=== PATIENT | female | born 1985 | race African-American/Black ===

== ENCOUNTER → 2018-06-08 | Emergency (ER) | payer OTHER ==
[~2018-06-08] MED LIST: ACETAMINOPHEN 1000 MG/100 ML VIAL (NON FORMULARY) IVPB ONE; ACETAMINOPHEN INJECTION 100 ML IVPB ONE; SODIUM CHLORIDE 1,000 ML IV STA
[2018-06-08 16:25] VITALS: BP 95/61; PULSE 63; TEMP 98.5; BMI 24.5
--- NOTE | 2018-06-08 16:28 | PDOC ---
Rapid Medical Evaluation Time Seen by Provider: 06/08/18 16:24 Medical Evaluation: Allergies Allergy/AdvReac Type Severity Reaction Status Date / Time No Known Allergies Allergy Verified 06/08/18 16:22 06/08/18 16:24 Pt C/o: rt lower abd pain x 5 days, no other complaints, no fever, no cyst, Pt on exam: mild lower / suprapubic pain Pt ordered for: ua, upreg, ucx Pt to proceed to the ED Discharge Disposition - Diagnosis Abdominal pain - Referrals Referrals: Logan Montes [Primary Care Provider] - - Patient Instructions - Post Discharge Activity
--- NOTE | 2018-06-08 17:26 | PDOC ---
History of Present Illness - General Chief Complaint: Pain, Acute Stated Complaint: ABD PAIN Time Seen by Provider: 06/08/18 16:24 History Source: Patient Exam Limitations: No Limitations - History of Present Illness Initial Comments: Pt, with PMH of cholelithiasis, presents with periumbilical and RLQ abdominal pain x5 days, migrating more towards RLQ. Pt states the pain is sharp and constant, with no radiation to the groin or back. It is worsened by palpation of the area, with no alleviating factors. She has taken ibuprofen for pain with no relief. She has been tolerating PO food and fluid intake, but has had decreased appetite over the past few days. She denies fevers/chills, nausea/ vomiting, SOB, and diarrhea. She denies any recent travel or sick contacts. Pt states ker LMP 05/23/2018, lasted approx 8-9 days, normal in flow, but came a week early. Pt had tubal ligation Sep 2017. PCP: Dr. Montes ([facility]) 06/08/18 18:01 Past History - Travel Traveled outside of the country in the last 30 days: No Close contact w/someone who was outside of country & ill: No - Past Medical History Allergies/Adverse Reactions: Allergies Allergy/AdvReac Type Severity Reaction Status Date / Time No Known Allergies Allergy Verified 06/08/18 16:22 Home Medications: Ambulatory Orders NK [No Known Home Medication] 06/08/18 Asthma: No Cancer: No Cardiac Disorders: No COPD: No Diabetes: No GI Disorders: Yes (GALLSTONES) HTN: No Seizures: No Thyroid Disease: No Other medical history: DENIES. - Reproductive History (#): 5 Para: 4 Cervical CA: No Dysfunctional Uterine Bleeding: No Ectopic : No Endometrial CA: No Polycystic Ovaries: No Therapeutic (s) & number: No Tubal Ligation: No Spontaneous : 0 - Immunization History Immunization Up to Date: Yes - Suicide/Smoking/Psychosocial Hx Smoking Status: No Smoking History: Never smoked Have you smoked in the past 12 months: No Hx Alcohol Use: No Drug/Substance Use Hx: No Substance Use Type: None Hx Substance Use Treatment: No Review of Systems - Review of Systems Able to Perform ROS?: Yes Is the patient limited [place] proficient: No Constitutional: Yes: Loss of Appetite, Weight Stable. No: Chills, Diaphoresis, Fever HEENTM: No: Recent change in vision, Nose Congestion, Hearing Loss, Difficulty Swallowing Respiratory: No: Cough, Orthopnea, Shortness of Breath Cardiac (ROS): No: Chest Pain, Edema, Irregular Heart Rate, Lightheadedness, Palpitations, Syncope, Chest Tightness ABD/GI: Yes: Poor Appetite, Other (josias-umbilical and RLQ pain). No: Abdominal Distended, Blood Streaked Bowels, Constipated, Diarrhea, Difficulty Swallowing, Nausea, Poor Fluid Intake, Vomiting, Indigestion, Abdominal cramping : No: Burning, Dysuria, Discharge, Frequency, Flank Pain, Hematuria, Incontinence, Pain, Urgency Musculoskeletal: No: Back Pain, Joint Pain Integumentary: No: Pruritus, Rash, Sweating Neurological: No: Headache, Numbness, Seizure, Unsteady Gait, Ataxia, Dizziness Psychiatric: No: Sleep Pattern Change, Change in Appetite Endocrine: No: Increased Urine, Change in Weight Hematologic/Lymphatic: No: Anemia, Blood Clots, Easy Bleeding All Other Systems: Reviewed and Negative *Physical Exam - Vital Signs Last Vital Signs Temp Pulse Resp BP Pulse Ox 98.5 F 63 17 95/61 100 06/08/18 16:22 06/08/18 16:22 06/08/18 16:22 06/08/18 16:22 06/08/18 16:22 - Physical Exam General Appearance: Yes: Nourished, Appropriately Dressed. No: Apparent Distress (BP 95/61, not tachycardic, afebrile.) HEENT: positive: EOMI, RAMOS, Normal ENT Inspection, Normal Voice, Pharynx Normal , Hearing Grossly Normal. negative: Scleral Icterus (R), Scleral Icterus (L), Pharyngeal Erythema, Tonsillar Exudate, Tonsillar Erythema, Rhinorrhea Neck: positive: Trachea midline, Normal Thyroid, Supple. negative: Tender, Rigid, Lymphadenopathy (R), Lymphadenopathy (L) Respiratory/Chest: positive: Lungs Clear, Normal Breath Sounds. negative: Chest Tender, Respiratory Distress, Accessory Muscle Use, Stridor, Wheezing Cardiovascular: positive: Regular Rhythm, Regular Rate, S1, S2. negative: Edema , JVD, Murmur, Tachycardia Vascular Pulses: Carotid (R): 4+, Carotid (L): 4+ Gastrointestinal/Abdominal: positive: Normal Bowel Sounds, Tender (RLQ tenderness, guarding. No rebound), Flat, Soft, Guarding. negative: Organomegaly , Pulsatile Mass, Distended, Rebound Rectal Exam: positive: deferred Lymphatic: negative: Adenopathy, Tenderness Musculoskeletal: positive: Normal Inspection. negative: CVA Tenderness Extremity: positive: Normal Capillary Refill, Normal Inspection, Normal Range of Motion, Pelvis Stable. negative: Tender, Pedal Edema, Calf Tenderness Integumentary: positive: Normal Color, Dry, Warm. 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 Song. Pt presents with periumbilical and RLQ abdominal pain x5 days, migrating more towards RLQ. LMP 05/23/2018, lasted approx 8-9 days, normal in flow. Pt had tubal ligation Sep 2017. Considering appendicitis vs ectopic vs ovarian cyst. Ordered CBC, CMP, type & screen, coags. Ordered CT abd/pelvis IV contrast to r/ o appendicitis. Pt BP 95/61 which is low for pt, no tachycardic, afebrile. Ordered 1g ofirmev for pain and 1 L NS. Pending labs. PCP: Dr. Crowe 06/08/18 17:52 Pt received fluids and ofirmev. Pt taken to CT scan. Small UTI (leuk esterase 2+, WBC 14) 06/08/18 19:20 Dr. Song spoke with pt and pt admitted this pain happened 1 month ago, for 3 days. Possible ovarian cyst. Awaiting CT results to r/o peritoneal fluid or appendicitis. 06/08/18 19:25 Pt refused IV contrast. Will proceed with CT without contrast. Awaiting results. 06/08/18 19:42 [id number] CT/ABDOMEN & PELVIS CT W/O CONTR Abdomen and pelvis CT (without contrast) Clinical information: right lower quadrant tenderness, evaluate for appendicitis , free fluid Multiplanar imaging was performed. No intravenous or enteric contrast was administered. A very small amount of free intraperitoneal fluid is seen within the pelvic cul- de-sac. No evidence of pneumoperitoneum or bowel obstruction. The appendix cannot be definitely visualized due to multiple contiguous bowel loops within the lower abdomen/pelvis. Evaluation of the mesentery in that region is also very limited on the same basis. No obvious abscess or gross mesenteric edema is visualized. There is no obvious adnexal pathology. Cholelithiasis is noted without definite CT evidence of acute cholecystitis. No biliary tract dilatation is visualized. The liver, spleen, pancreas, adrenal glands and kidneys demonstrate no discrete noncontrast pathology. There is no aortic aneurysm. No gross lymphadenopathy is identified. The visualized osseous structures demonstrate no obvious CT evidence of acute abnormality. No gross small bowel pathology is seen. Impression: A very small amount of pelvic free fluid is noted. The appendiceal region cannot be adequately evaluated on this exam due to a relative paucity of intra-abdominal/pelvic fat as well as multiple contiguous bowel loops. If clinically indicated additional evaluation utilizing supplemental targeted CT of the pelvis and lower half of the abdomen preferably with intravenous and oral contrast may be performed. Pt did not wish to stay in the department. Pt eloped after removal of her IV. We planned to send Macrobid to pharmacy for minor UTI, and proceed with pelvic US to r/o ruptured ovarian cyst. Labs were otherwise WNL. Pt did not sign AMA form. 06/08/18 21:06 *DC/Admit/Observation/Transfer Diagnosis at time of Disposition: Abdominal pain Qualifiers: Abdominal location: right lower quadrant Qualified Code(s): R10.31 - Right lower quadrant pain - Discharge Dispostion Disposition: ELOPED Decision to Admit order: No - Referrals Referrals: Logan Montes [Primary Care Provider] - - Patient Instructions - Post Discharge Activity
--- NOTE | 2018-06-08 17:42 | PDOC ---
Attending Attestation - Resident Resident Name: Bebe Acevedo - ED Attending Attestation I have performed the following: I have examined & evaluated the patient, The case was reviewed & discussed with the resident, I agree w/resident's findings & plan, Exceptions are as noted - HPI HPI: 06/08/18 18:01 Ms luong is a 32 yo F who presents to the ER with a complaint of abdominal pain pt states that her symptoms began 5 days ago She noted severe right lower abdominal pain, which made it difficult to walk No vomiting, no diarrhea Pt tolerating po No fevers or chills symptoms have been consistently present for the past 5 days She had a similar episode last month, lasting 3 days and then it self resolved - Physicial Exam PE: 06/08/18 18:06 On examination Pt is appears well, laughing with daughter RRR CTA bilaterally RLQ tenderness to palpation, no involuntary guarding or rebound - Medical Decision Making 06/08/18 18:08 RLQ pain DD: appendicitis, ruptured ovarian cyst, right ovarian torsion Will do: Labs IVF Would do TVUS Can also do CT Pain medications Re: assess 06/08/18 19:44 Laboratory Tests 06/08/18 06/08/18 06/08/18 16:40 18:05 18:05 WBC 7.8 Hgb 11.1 Hct 34.9 Plt Count 195 INR 1.12 H Sodium Potassium Chloride Carbon Dioxide BUN Creatinine Random Glucose Urine Nitrite Negative Ur Leukocyte Esterase 2+ H Urine WBC (Auto) 14 Urine RBC (Auto) 1 Urine HCG, Qual Negative 06/08/18 18:05 WBC Hgb Hct Plt Count INR Sodium 144 Potassium 3.7 Chloride 109 H Carbon Dioxide 27 BUN 9 Creatinine 0.6 Random Glucose 89 Urine Nitrite Ur Leukocyte Esterase Urine WBC (Auto) Urine RBC (Auto) Urine HCG, Qual 06/08/18 21:[address] performed Unable to see Appendix (paucity of intra abdominal fat, pt refused IV contrast) Pt unwilling to stay for US Pt has eloped Discharge Disposition - Discharge Dispostion Last Admission D/C Date: 10/14/16 - Diagnosis Abdominal pain Qualifiers: Abdominal location: right lower quadrant Qualified Code(s): R10.31 - Right lower quadrant pain - Discharge Dispostion Disposition: ELOPED - Referrals Referrals: Logan Montes [Primary Care Provider] - - Patient Instructions - Post Discharge Activity
[2018-06-08 18:07] LABS: HCG,QUALITATIVE URINE Negative
[2018-06-08 18:12] LABS: URINE APPEARANCE SLCLOUDY; URINE BILIRUBIN NEGATIVE (<2.0 mg/dL); URINE COLOR YELLOW; URINE GLUCOSE (UA) NEGATIVE (NEGATIVE); URINE KETONE NEGATIVE (NEGATIVE); URINE LEUK ESTERASE 2+ (NEGATIVE); URINE NITRITE NEGATIVE (NEGATIVE); URINE PROTEIN NEGATIVE (NEGATIVE); URINE UROBILINOGEN NEGATIVE mg/dL (0.2-1.0)
[2018-06-08 18:14] LABS: EPI CELLS RARE /HPF (FEW); URINE MUCUS RARE
[2018-06-08 18:27] LABS: BASO % 0.5 % (0-2.0); EOS % 0.7 % (0-4.5); HEMATOCRIT 34.9 % (32.4-45.2); HEMOGLOBIN 11.1 GM/dL (10.7-15.3); LYMPH % 23.4 % (8-40); MCH 23.4 pg (25.7-33.7); MCHC 31.9 g/dl (32.0-36.0); MEAN CELL VOLUME 73.3 fl (80-96); MEAN PLT VOLUME 9.3 fl (7.5-11.1); MONO % 5.4 % (3.8-10.2); PLATELET COUNT 195 K/MM3 (134-434); RBC 4.76 M/mm3 (3.60-5.2); RDW 14.7 % (11.6-15.6); WHITE BLOOD COUNT 7.8 K/mm3 (4.0-10.0)
[2018-06-08 18:44] LABS: INR 1.12 (0.83-1.09); PROTHROMBIN TIME (PATIENT) 12.6 SEC (9.7-13.0)
[2018-06-08 18:47] LABS: ALBUMIN 3.3 g/dl (3.4-5.0); ALK PHOS 71 U/L (45-117); ANION GAP 8 MMOL/L (8-16); BILIRUBIN,TOTAL 0.4 mg/dL (0.2-1.0); BLOOD UREA NITROGEN 9 mg/dL (7-18); CALCIUM 8.9 mg/dL (8.5-10.1); CHLORIDE 109 mmol/L (98-107); CO2 27 mmol/L (21-32); CREATININE 0.6 mg/dL (0.55-1.02); GLUCOSE,RANDOM 89 mg/dL (74-106); POTASSIUM 3.7 mmol/L (3.5-5.1); SGOT/AST 42 U/L (15-37); SGPT/ALT 47 U/L (12-78); SODIUM 144 mmol/L (136-145); TOT PROT 6.9 g/dl (6.4-8.2)
[2018-06-08 18:51] LABS: LIPASE 225 U/L (73-393)
== END | disposition left against medical advice (07) ==
LOC: JER 15:59 → JERFT 15:59
PROC: 3E033NZ Introduction of Analgesics, Hypnotics, Sedatives into Peripheral Vein, Percutaneous Approach (ICD-10-PCS; principal; 2018-06-08)
DX: N39.0 Urinary tract infection, site not specified (principal)
CPT/HCPCS: 36415; 74176-TC; 80053; 81003; 81015; 83690; 84703; 85025; 85610; 85730; 86850; 86900; 86901; 87086; 96374; 99282-25; J0131; J7030

== ENCOUNTER 2019-02-07 23:55 | Emergency (ER) | payer OTHER ==
[2019-02-08 00:03] VITALS: BP 107/79; PULSE 75; TEMP 98.1; BMI 25.8
--- NOTE | 2019-02-08 00:32 | PDOC ---
History of Present Illness - General Chief Complaint: Chest Pain Stated Complaint: chest pain Time Seen by Provider: 02/08/19 00:15 - History of Present Illness Initial Comments: 02/08/19 00:31 33 yo F with no significant pmh who p/w left sided retrosternal chest pain. Patient reports acute onset of unremitting, sharp, pleuritic left side retorsternal chest pain, worse with all movements. No identifiable triggers. Not alleviated with OTC Advil. Denies h/o similar presentation. Denies postprandial pain. Denies h/o similiar pain. Patient denies ACHARYA, vision change, palpitations, cough, wheezing, orthopena, PND , leg swelling/pain, N/V, F,C, SOB, urinary complaints, hematuria, BPR, abdominal pain, vaginal bleeding, pelvic pain, diarrhea, constipation, lightheadedness, weakness, sensory changes. PMHx: as noted above Surical: x 5 ROS: as noted SHx: Denies IVDA Allergies: NKDA Past History - Past Medical History Allergies/Adverse Reactions: Allergies Allergy/AdvReac Type Severity Reaction Status Date / Time No Known Allergies Allergy Verified 02/08/19 00:01 Home Medications: Ambulatory Orders NK [No Known Home Medication] 06/08/18 Asthma: No Cancer: No Cardiac Disorders: No COPD: No Diabetes: No GI Disorders: Yes (GALLSTONES) HTN: No Seizures: No Thyroid Disease: No - Reproductive History (#): 5 Para: 4 Cervical CA: No Dysfunctional Uterine Bleeding: No Ectopic : No Endometrial CA: No Polycystic Ovaries: No Therapeutic (s) & number: No Tubal Ligation: No Spontaneous : 0 - Immunization History Immunization Up to Date: Yes - Suicide/Smoking/Psychosocial Hx Smoking Status: No Smoking History: Never smoked Have you smoked in the past 12 months: No Information on smoking cessation initiated: No Hx Alcohol Use: No Drug/Substance Use Hx: No Substance Use Type: None Hx Substance Use Treatment: No Review of Systems - Review of Systems Comments:: 02/08/19 00:37 GENERAL/CONSTITUTIONAL: No fever or chills. No weakness. HEAD, EYES, EARS, NOSE AND THROAT: No change in vision. No ear pain or discharge. No sore throat. CARDIOVASCULAR: + left sided chest pain. No shortness of breath RESPIRATORY: No cough, wheezing, or hemoptysis. GASTROINTESTINAL: No nausea, vomiting, diarrhea or constipation. GENITOURINARY: No dysuria, frequency, or change in urination. MUSCULOSKELETAL: No joint or muscle swelling or pain. No neck or back pain. SKIN: No rash NEUROLOGIC: No headache, vertigo, loss of consciousness, or change in strength/ sensation. ENDOCRINE: No increased thirst. No abnormal weight change HEMATOLOGIC/LYMPHATIC: No anemia, easy bleeding, or history of blood clots. ALLERGIC/IMMUNOLOGIC: No hives or skin allergy. *Physical Exam - Vital Signs Last Vital Signs Temp Pulse Resp BP Pulse Ox 98.1 F 75 16 107/79 100 02/08/19 00:01 02/08/19 00:01 02/08/19 00:01 02/08/19 00:01 02/08/19 00:01 - Physical Exam Comments: 02/08/19 00:37 GENERAL: Awake, alert, and fully oriented, in no acute distress HEAD: No signs of trauma, normocephalic, atraumatic EYES: PERRLA, EOMI, sclera anicteric, conjunctiva clear ENT: Auricles normal inspection, hearing grossly normal, nares patent, oropharynx clear without exudates. Moist mucosa NECK: Normal ROM, supple, no lymphadenopathy, JVD, or masses LUNGS: No distress, speaks full sentences, clear to auscultation bilaterally HEART: Regular rate and rhythm, normal S1 and S2, no murmurs, rubs or gallops, peripheral pulses normal and equal bilaterally. ABDOMEN: Soft, nontender, normoactive bowel sounds. No guarding, no rebound. No masses EXTREMITIES : Normal inspection, Normal range of motion, no edema. No clubbing or cyanosis. NEUROLOGICAL: Cranial nerves II through XII grossly intact. Normal speech, normal gait, no focal sensorimotor deficits SKIN: Warm, Dry, normal turgor, no rashes or lesions noted ED Treatment Course - LABORATORY CBC & Chemistry Diagram: 02/08/19 01:10 02/08/19 01:10 Medical Decision Making - Medical Decision Making 02/08/19 00:34 33 yo F with no significant pmh who p/w left sided retrosternal chest pain. Patient reports acute onset of unremitting, sharp, pleuritic left side retorsternal chest pain., vitals wnl, AF, A&Ox3. Physical exam unremarkable. Low risk PE, PERC NEG, D-dimer. Will consider pericardial effusion, pericarditis , pleural effusion, PNA, gastritis, esophagitis. Will provide adequate analgesia and reasses. Ed Course: 02/08/19 00:51 EKG: NSR with absent SUNNY, STD. Nml interval duration and axis. Nml R wave progression. Absent Q waves. CBC: Unremarkable 02/08/19 01:51 Patient endorsed to night team, stable Pending CXR If CXR nml patient stable for d/c with return precautions. *DC/Admit/Observation/Transfer Diagnosis at time of Disposition: Retrosternal chest pain - Discharge Dispostion Condition at time of disposition: Stable - Referrals Referrals: Logan Montes [Primary Care Provider] - - Patient Instructions Printed Discharge Instructions: DI for Atypical Chest Pain Additional Instructions: Please return to the emergency department with any new or worsening symptoms or concerns. Please follow up with your primary care physician within 72 hours. - Post Discharge Activity
--- NOTE | 2019-02-08 01:21 | PDOC ---
Documentation entered by Oliverio Rojas SCRIBE, acting as scribe for Rupinder Ward DO. Rupinder Ward DO: This documentation has been prepared by the Bob holguin Nirvannie, SCRIBE, under my direction and personally reviewed by me in its entirety. I confirm that the documentation accurately reflects all work, treatment, procedures, and medical decision making performed by me. Attending Attestation - Resident Resident Name: MarianoJunior - ED Attending Attestation I have performed the following: I have examined & evaluated the patient, The case was reviewed & discussed with the resident, I agree w/resident's findings & plan - HPI HPI: 02/08/19 01:37 The patient is a 33 year old female, with no significant past medical history, who presents to the emergency department with, sharp, left sided, pleuritic chest pain worsened with movement. Patient endorses taking 400mg Ibuprofen, without relief prompting her arrival to the ED. She denies any long distance travel, calf pain, or recent heavy lifting. She denies recent fevers, chills, headache or dizziness. She denies recent nausea, vomit, diarrhea or constipation. She denies recent dysuria, frequency, urgency or hematuria. Allergies: NKDA Past surgical history: C-Sections. Social history: Nonsmoker. Denies EtOH use and recreational drug use. Primary Care Physician: Dr. Montes - Physicial Exam PE: 02/08/19 01:37 Constitutional: Awake, alert, oriented. No acute distress. Head: Normocephalic. Atraumatic Eyes: PERRL. EOMI. Conjunctivae are not pale. ENT: Mucous membranes are moist and intact. Posterior pharynx without exudates or erythema. Uvula midline. Neck: Supple. Full ROM. No lymphadenopathy. Cardiovascular: Regular rate. Regular rhythm. S1, S2 regular. Distal pulses are 2+ and symmetric. Pulmonary/Chest: No reproducible anterior chest wall tenderness. No evidence of respiratory distress. Clear to auscultation bilaterally No wheezing, rales or rhonchi. Abdominal: Soft and non-distended. There is no tenderness. No rebound, guarding or rigidity. No organomegaly. No palpable masses. Good bowel sounds. Back: No CVA tenderness. Musculoskeletal: No edema. No cyanosis. No clubbing. Full range of motion in all extremities. No calf tenderness. Radial/pedal pulses are intact and 2+ bilaterally Skin: Skin is warm and dry. No petechiae. No purpura. Neurological: Alert and oriented to person, place, and time. Cranial nerves II -XII are grossly intact. Normal speech. Strength is grossly symmetric. No sensory deficits. Psychiatric: Good eye contact. Normal interaction, affect and behavior. - Medical Decision Making 02/08/19 01:15 I, Dr. Rupinder Ward, DO, attest that this document has been prepared under my direction and personally reviewed by me in its entirety. I further attest, that it accurately reflects all work, treatment, procedures and medical decision -making performed by me. 02/08/19 01:15 a/p: 33yo female with midsternal cp -took advil tonight which did not help\ -no reproducible chest wall ttp -no trauma -had a cough that has resolved -perc negative, however sob and pleuritic cp -poss pleurisy vs acs vs pna vs pe -will send labs -cxr -will monitor and reassess 02/08/19 02:06 pt signed out pending labs and cxr Heart Score/ECG Review - ECG Intrepretation Comment:: 02/08/19 01:21 sinus at 71, nl axis, nl interval, no acute st/t wave findings
[2019-02-08 01:31] LABS: BASO % 0.7 % (0-2.0); HEMATOCRIT 35.4 % (32.4-45.2); HEMOGLOBIN 11.2 GM/dL (10.7-15.3); MCH 23.4 pg (25.7-33.7); MCHC 31.7 g/dl (32.0-36.0); MEAN CELL VOLUME 73.9 fl (80-96); MEAN PLT VOLUME 9.7 fl (7.5-11.1); MONO % 5.8 % (3.8-10.2); NEUT % 59.5 % (42.8-82.8); PLATELET COUNT 178 K/MM3 (134-434); RDW 14.9 % (11.6-15.6); WHITE BLOOD COUNT 8.3 K/mm3 (4.0-10.0)
[2019-02-08 02:06] LABS: ALBUMIN 3.8 g/dl (3.4-5.0); ALK PHOS 58 U/L (45-117); ANION GAP 8 MMOL/L (8-16); BILIRUBIN,TOTAL 0.4 mg/dL (0.2-1); BLOOD UREA NITROGEN 14 mg/dL (7-18); CALCIUM 8.6 mg/dL (8.5-10.1); CHLORIDE 106 mmol/L (98-107); CO2 24 mmol/L (21-32); CREATININE 0.8 mg/dL (0.55-1.3); GLUCOSE,RANDOM 86 mg/dL (74-106); POTASSIUM 3.7 mmol/L (3.5-5.1); SGOT/AST 18 U/L (15-37); SGPT/ALT 20 U/L (13-61); SODIUM 138 mmol/L (136-145); TOT PROT 7.6 g/dl (6.4-8.2)
--- NOTE | 2019-02-08 03:27 | PDOC ---
*Physical Exam - Vital Signs Last Vital Signs Temp Pulse Resp BP Pulse Ox 98.1 F 75 16 107/79 100 02/08/19 00:01 02/08/19 00:01 02/08/19 00:01 02/08/19 00:01 02/08/19 00:01 ED Treatment Course - LABORATORY CBC & Chemistry Diagram: 02/08/19 01:10 02/08/19 01:10 - ADDITIONAL ORDERS Additional order review: Laboratory Results 02/08/19 02/08/19 02/08/19 01:10 01:10 01:10 D-Dimer < 215 Sodium 138 Potassium 3.7 Chloride 106 Carbon Dioxide 24 Anion Gap 8 BUN 14 Creatinine 0.8 Creat Clearance w eGFR 82.61 Random Glucose 86 Calcium 8.6 Total Bilirubin 0.4 AST 18 ALT 20 Alkaline Phosphatase 58 Creatine Kinase 233 H Creatine Kinase Index 0.6 CK-MB (CK-2) 1.5 Troponin I < 0.02 Total Protein 7.6 Albumin 3.8 Serum , Qual Negative 02/08/19 01:10 RBC 4.80 MCV 73.9 L MCHC 31.7 L RDW 14.9 MPV 9.7 Neutrophils % 59.5 Lymphocytes % 33.0 D Monocytes % 5.8 Eosinophils % 1.0 Basophils % 0.7 Medical Decision Making - Medical Decision Making 02/08/19 03:25 Patient signed out with atypical left sided upper chest / shoulder pain that stated while she was pushing an object. labs WNL, EKG WNL, and D-Dimer negative. CXR delayed and patient asking to go home. We discussed risk/ benefits of leaving and she is OK with discharge. Will DC with return precautions and follow up instructions. *DC/Admit/Observation/Transfer Diagnosis at time of Disposition: Retrosternal chest pain - Discharge Dispostion Condition at time of disposition: Stable - Referrals Referrals: Logan Montes [Primary Care Provider] - - Patient Instructions Printed Discharge Instructions: DI for Atypical Chest Pain Additional Instructions: Please return to the emergency department with any new or worsening symptoms or concerns. Please follow up with your primary care physician within 72 hours. - Post Discharge Activity
--- NOTE | 2019-02-08 11:20 | EKG ---
Test Reason : Blood Pressure : / mmHG Vent. Rate : 071 BPM Atrial Rate : 071 BPM P-R Int : 196 ms QRS Dur : 076 ms QT Int : 402 ms P-R-T Axes : 070 052 032 degrees QTc Int : 436 ms NORMAL SINUS RHYTHM POSSIBLE LEFT ATRIAL ENLARGEMENT WHEN COMPARED WITH ECG OF 26-SEP-2015 15:57, NO SIGNIFICANT CHANGE WAS FOUND Confirmed by TESS CASTILLO MD ([id number]) on 02/08/2019 11:20:09 AM Referred By: Confirmed By:TESS CASTILLO MD
== END 2019-02-08 03:57 | disposition home or self-care (01) ==
LOC: JER 23:55
DX: R07.89 Other chest pain (principal)
CPT/HCPCS: 36415; 80053; 82550; 82553; 84484; 84703; 85025; 85379; 93005; 93010; 99281-25

== ENCOUNTER 2019-12-17 18:33 | Emergency (ER) | payer OTHER ==
--- NOTE | 2019-12-17 18:37 | PDOC ---
Rapid Medical Evaluation Time Seen by Provider: 12/17/19 18:36 Medical Evaluation: Allergies Allergy/AdvReac Type Severity Reaction Status Date / Time No Known Allergies Allergy Verified 02/08/19 00:01 12/17/19 18:36 CC: Dysuria, urinary frequency, fatigue. Denies vaginal bleeding, discharge or dysparunia PE: VSS. AF. No CVAT. Suprapubic tenderness. Orders: urine Patient will proceed to ED for further evaluation. Discharge Disposition - Diagnosis Dysuria - Referrals - Patient Instructions - Post Discharge Activity
[2019-12-17 18:38] VITALS: BP 99/64; PULSE 83; TEMP 98.4; BMI 24.5
[2019-12-17 19:28] LABS: EPI CELLS 2.1 /HPF (0-5/HPF); HYALINE CASTS 13 /lpf (0-8); PH,URINE 5.5 (5.0-8.0); URINE APPEARANCE TURBID; URINE BACTERIA 1376.8 /hpf (NEGATIVE); URINE BILIRUBIN 1+ (NEGATIVE); URINE COLOR DK YELLOW; URINE GLUCOSE (UA) NEGATIVE (NEGATIVE); URINE KETONE TRACE (NEGATIVE); URINE LEUK ESTERASE 3+ (NEGATIVE); URINE NITRITE NEGATIVE (NEGATIVE); URINE PROTEIN 2+ (NEGATIVE); URINE RBC 18 /hpf (0-4); URINE WBC 750 /hpf (0-5)
[2019-12-17] MEDS ORDERED: CEPHALEXIN MONOHYDRATE 500 MG CAPSULE (UD) PO ONE (19:33)
--- NOTE | 2019-12-17 19:36 | PDOC ---
History of Present Illness - General Chief Complaint: Urinary Problem Stated Complaint: UTI Time Seen by Provider: 12/17/19 18:36 History Source: Patient Exam Limitations: No Limitations Past History - Travel Traveled outside of the country in the last 30 days: No Close contact w/someone who was outside of country & ill: No - Past Medical History Allergies/Adverse Reactions: Allergies Allergy/AdvReac Type Severity Reaction Status Date / Time No Known Allergies Allergy Verified 12/17/19 18:37 Home Medications: Ambulatory Orders Cephalexin Monohydrate [Keflex -] 500 mg PO BID #14 capsule 12/17/19 Asthma: No Cancer: No Cardiac Disorders: No COPD: No Diabetes: No GI Disorders: Yes (G[place]STONES) HTN: No Seizures: No Thyroid Disease: No - Reproductive History Is Patient Now?: No (#): 5 Para: 4 Cervical CA: No Dysfunctional Uterine Bleeding: No Ectopic : No Endometrial CA: No Polycystic Ovaries: No Therapeutic (s) & number: No Tubal Ligation: No Spontaneous : 0 - Immunization History Immunization Up to Date: Yes - Psycho Social/Smoking Cessation Hx Smoking Status: No Smoking History: Never smoked Have you smoked in the past 12 months: No Hx Alcohol Use: No Drug/Substance Use Hx: No Substance Use Type: None Hx Substance Use Treatment: No Review of Systems - Review of Systems Able to Perform ROS?: Yes Comments:: 12/17/19 19:33 CONSTITUTIONAL: Absent: fever, chills, diaphoresis, generalized weakness, malaise, loss of appetite GASTROINTESTINAL: Absent: abdominal pain, abdominal distension, nausea, vomiting, diarrhea, constipation, melena, hematochezia GENITOURINARY: Present: Dysuria, urgency and hesitancy. Absent: dysuria, frequency, urgency, hesitancy, hematuria, flank pain, genital pain MUSCULOSKELETAL: Absent: myalgia, arthralgia, joint swelling SKIN: Absent: rash, itching, pallor NEUROLOGIC: Absent: headache, focal weakness or paresthesias, dizziness, unsteady gait, seizure, mental status changes, bladder or bowel incontinence PSYCHIATRIC: Absent: anxiety, depression, suicidal or homicidal ideation, hallucinations. Is the patient limited Prydeinig proficient: No *Physical Exam - Vital Signs Last Vital Signs Temp Pulse Resp BP Pulse Ox 98.4 F 83 16 99/64 97 12/17/19 18:35 12/17/19 18:35 12/17/19 18:35 12/17/19 18:35 12/17/19 18:35 - Physical Exam 12/17/19 19:34 GENERAL: Well developed, well nourished. Awake and alert. No acute distress. HEENT: Normocephalic, atraumatic. PERRLA, EOMI. No conjunctival pallor. Sclera are non- icteric. Moist mucous membranes. ABDOMINAL: Suprapubic discomfort. Soft. Non-tender. Non-distended. No rebound or guarding. No organomegaly. Normoactive bowel sounds. MUSCULOSKELETAL Normal range of motion at all joints. No bony deformities or tenderness. No CVA tenderness. EXTREMITIES: No cyanosis. No clubbing. No edema. No calf tenderness. SKIN: Warm and dry. Normal capillary refill. No rashes. No jaundice. NEUROLOGICAL: Alert, awake, appropriate. Cranial nerves 2-12 intact. No deficits to light touch and temperature in face, upper extremities and lower extremities. No motor deficits in the in face, upper extremities and lower extremities. Normoreflexic in the upper and lower extremities. Normal speech. Toes are down- going bilaterally. Gait is normal without ataxia. PSYCHIATRIC: Cooperative. Good eye contact. Appropriate mood and affect. ED Treatment Course - ADDITIONAL ORDERS Additional order review: Laboratory Results 12/17/19 12/17/19 19:20 19:20 Urine Color Dk yellow Urine Appearance Turbid Urine pH 5.5 Ur Specific [place] 1.024 Urine Protein 2+ H Urine Glucose (UA) Negative Urine Ketones Trace H Urine Blood Trace Urine Nitrite Negative Urine Bilirubin 1+ H Urine Urobilinogen 1.0 Ur Leukocyte Esterase 3+ H Urine WBC (Auto) 750 Urine RBC (Auto) 18 Urine Casts (Auto) 13 U Epithel Cells (Auto) 2.1 Urine Bacteria (Auto) 1376.8 Urine HCG, Qual Negative Medical Decision Making - Medical Decision Making 12/17/19 19:34 The patient is a 34-year-old female no past medical history who presents to the ER today with dysuria, frequency and urgency. She states her symptoms started on Monday. She states that over the last 3 days her symptoms have gotten worse. Denies fevers, chills, back pain, nausea and vomiting. A/P: UTI On exam patient with suprapubic discomfort. No CVA tenderness. Patient is afebrile. Urine shows 3+ leukocytes with over thousand bacteria in the urine. We will treat as a UTI at this time. Culture sent. First dose of Keflex given in the emergency department. Patient for Keflex sent to patient's pharmacy. Discharge home with primary care follow-up. I discussed the physical exam findings, ancillary test results and final diagnoses with the patient. I answered all of the patient's questions. The patient was satisfied with the care received and felt comfortable with the discharge plan and treatment plan. The Patient agrees to follow up with the primary care physician/specialist within 24-72 hours. Return precautions were given. Discharge - Discharge Information Problems reviewed: Yes Clinical Impression/Diagnosis: UTI (urinary tract infection) Qualifiers: Urinary tract infection type: acute cystitis Hematuria presence: without hematuria Qualified Code(s): N30.00 - Acute cystitis without hematuria Condition: Stable Disposition: HOME - Admission No - Follow up/Referral Referrals: Carl Mensah MD [Staff Physician] - - Patient Discharge Instructions Patient Printed Discharge Instructions: DI for Urinary Tract Infection (UTI) Additional Instructions: You have a urinary tract infection. This caused by bacteria. Please drink plenty of fluids. Take your antibiotics as prescribed. Finish the entire dose even if you feel better. You may take Tylenol or Motrin as needed for pain Please follow up with your primary care doctor this week. Return to the emergency department if you have fevers, chills, nausea, vomiting , back pain, or have any changes in your symptoms. - Post Discharge Activity Work/Back to School Note: Back to Work
[2019-12-17] MEDS ORDERED: CEPHALEXIN MONOHYDRATE 500 MG CAPSULE (UD) ONE (19:37)
== END 2019-12-17 19:43 | disposition home or self-care (01) ==
LOC: JER 18:33 → JERFT 18:33
DX: N30.00 Acute cystitis without hematuria (principal); Z87.19 Personal history of other diseases of the digestive system
CPT/HCPCS: 81003; 84703; 87086; 87186; 99283-25